=== PATIENT | female | born 1985 | race Caucasian/White ===

== ENCOUNTER → 2020-06-18 17:36 | Outpatient (CLI) | payer OTHER, SELFPAY ==
--- NOTE | ~2020-06-18 | XR_ITS ---
EXAMINATION:XR cervical spine 4-5V DATE: 06/18/2020 18:06 INDICATION: Neck pain TECHNIQUE: AP, lateral, bilateral oblique, and odontoid views of the cervical spine are provided. COMPARISON: None FINDINGS: Alignment is normal. The odontoid is intact. No fracture is identified. Vertebral body heig hts and disk spaces are normal. Prevertebral soft tissues are normal. IMPRESSION: 1. Unremarkable cervical spine. Reviewed, dictated and finalized at location A. [employer]
== END ==
DX: M54.2 Cervicalgia (principal)
CPT/HCPCS: 72050

== ENCOUNTER → 2021-11-25 08:11 | Outpatient (CLI) | payer BC, SELFPAY ==
--- NOTE | ~2021-11-25 | MM_ITS ---
Corrected Report Order # associated See bolded text 11/26/2021 [facility] [place] EXAMINATION: MM diagnostic carlos eduardo BI w mar; US breast RT complete HISTORY: Palpable lump in the axillary region of the right breast, nonspecified lymphadenitis TECHNIQUE: Craniocaudal, mediolateral, and mediolateral oblique 3-D tomosynthesis images of the right breast were performed and synthetic 2-D images were generated. CAD analysis was submitted and interpreted. High resolution complete right breast ultrasound including all four quadrants, subareolar region, and the right axilla was performed. COMPARISON: None, baseline BREAST PARENCHYMAL COMPOSITION: The breasts are heterogeneously dense, which may obscure small masses. FINDINGS: MAMMOGRAPHIC FINDINGS: There is no suspicious mass, calcification, or architectural distortion in either breast to suggest malignancy. No mammographic correlate is identified for the reported palpable abnormality of the right breast. ULTRASOUND: There is no evidence of focal abnormal solid or cystic mass in the vicinity of the reported palpable abnormality of concern. IMPRESSION: 1. No specific mammographic or sonographic correlate is identified for the reported palpable abnormality of concern. Further evaluation at this time should be based on clinical assessment. Continued follow-up physical examination is recommended. 2. Recommend routine screening mammography beginning at age 40. BI-RADS Category 1: Negative Reviewed, dictated and finalized at location A. MTDD IMPRESSION: 1. No specific mammographic or sonographic correlate is identified for the repo rted palpable abnormality of concern. Further evaluation at this time should be based on clinical assessment. Continued follow-up physical examination is milton mmended. 2. Recommend routine screening mammography beginning at age 40. BI-RADS Category 1: Negative
--- NOTE | ~2021-11-25 | CT_ITS ---
EXAMINATION: CT soft tissue neck w con DATE: 11/25/2021 10:14 INDICATION: Right neck lymphadenopathy. TECHNIQUE: Computed tomography (CT) of the neck was performed with 100 mL Omnipaque 300 intravenous c ontrast. Automated exposure control and iterative reconstruction technique were employed. The dose-le ngth product was 385.75 mGy-cm. COMPARISON: None FINDINGS: There is mild scarring at the lung apices. The cervical carotid arteries are normal. There are no pathologically enlarged lymph nodes. There are changes of disc replacement at C5-C6. There is mild mucosal thickening in the paranasal sinuses. The mastoid air cells are normal. IMPRESSION: 1. No lymphadenopathy. Reviewed, dictated and finalized at location A. IMPRESSION: 1. No lymphadenopathy.
--- NOTE | ~2021-11-25 | CT_ITS ---
EXAMINATION: CT UE RT w con DATE: 11/25/2021 10:15 INDICATION: Right axillary mass. TECHNIQUE: Computed tomography (CT) of the proximal right upper extremity was performed with 100 mL O mnipaque 300 intravenous contrast. Automated exposure control and iterative reconstruction technique were employed. The dose-length product was 191.68 mGy-cm. COMPARISON: None FINDINGS: There is mild scarring at right lung apex. There is no lymphadenopathy. There is a skin mar ker in the axilla. There is no abnormal mass in this area. Bone alignment is normal. No fracture. Mayela nt spaces are normal. IMPRESSION: 1. No abnormal mass or lymphadenopathy in right axilla. Reviewed, dictated and finalized at location A.
== END ==
DX: I88.9 Nonspecific lymphadenitis, unspecified (principal); R92.2 Inconclusive mammogram
CPT/HCPCS: 70491; 73201; 76641; 77062; 77066; G0279; Q9967